=== PATIENT | male | born 1935 | race Caucasian/White ===

== ENCOUNTER 2022-12-07 11:15 | Emergency (ER) | payer MEDICARE ==
[~2022-12-07] VITALS: Ht 167.6 cm; Wt 87.0 kg
[2022-12-07 11:31] LABS: BASOPHILS 1.1 % (0-2); EOSINOPHILS 0.3 % (0-6); HEMATOCRIT 36.6 % (35.0-50.0); HEMOGLOBIN 12.2 g/dL (12.0-18.0); LYMPHOCYTES 18.5 % (24-44); MCHC 33.3 g/dl (30-36); MCV 96.1 fl (81-99); MONOCYTES 11.7 % (0-12); NEUTROPHILS 68.4 % (39-80); PLATELET COUNT 188 K/uL (140-440); RBC 3.81 M/ul (4.3-5.7); RDW 14.3 (10.5-15.0)
[2022-12-07] MEDS ORDERED: FUROSEMIDE20 MG PO (11:43)
[2022-12-07 11:56] LABS: ALBUMIN 3.2 g/dL (3.4-5.0); ALBUMIN/GLOBULIN RATIO 0.82 (1.1-2.4); ANION GAP 10.1 (7-21); BILIRUBIN, TOTAL 0.4 ng/dL (0.2-1.0); BUN/CREATININE RATIO 13.82 (6.0-28.6); CALCIUM 8.7 mg/dL (8.5-10.1); CREATININE, SERUM 0.94 mg/dL (0.70-1.30); POTASSIUM 4.1 mmol/L (3.5-5.1); PROTEIN, TOTAL 7.1 g/dL (6.4-8.2)
[2022-12-07 12:58] LABS: INFLUENZA B NAA NEGATIVE (NEGATIVE); RESPIRATORY SYNCYTIAL VIR NAA NEGATIVE (NEGATIVE)
[2022-12-07 14:02] VITALS: BP 124/63
--- NOTE | 2022-12-07 22:26 | EKG ---
[facility] [address] [facility] [place] [address] Signed Normal sinus rhythm Left anterior fascicular block Abnormal ECG No previous ECGs available Confirmed by Anjum Tovar MD () on 12/07/2022 10:25:52 PM Electronically Signed By: ANJUM TOVAR MD 12/07/222225 PATIENT NAME: NELY SHERIDAN Electrocardiogram DATE OF : [birth year] PHYSICIAN: ANJUM TOVAR MD REPORT #: [id number] REPORT IS CONFIDENTIAL AND NOT TO BE RELEASED WITHOUT AUTHORIZATION
== END 2022-12-07 14:02 | disposition short-term general hospital (02) ==
LOC: ED 11:15
PROVIDERS: Internal Medicine
DX: S06.350A Traumatic hemorrhage of left cerebrum without loss of consciousness, initial encounter (principal); W19.XXXA Unspecified fall, initial encounter; F03.90 Unspecified dementia, unspecified severity, without behavioral disturbance, psychotic disturbance, mood disturbance, and anxiety; Z79.899 Other long term (current) drug therapy; Z20.822 Contact with and (suspected) exposure to COVID-19
CPT/HCPCS: 36415; 70450; 71045; 73110; 80053; 83605; 83880; 84484; 85025; 87502; 93005; 93010; 93971; 99285-25; C9803; U0002